=== PATIENT | male | born 1985 | race Caucasian/White ===

== ENCOUNTER 2023-01-15 16:31 | Emergency (ER) | payer MEDICAID ==
[~2023-01-15] VITALS: Ht 190.5 cm; Wt 100.0 kg
[2023-01-15] MEDS ORDERED: IBUPROFEN 600 MG TABLET PO ONE (17:00)
[2023-01-15] MEDS ORDERED: IBUP-1492 PO (18:09)
[2023-01-15 18:45] VITALS: BP 122/77
== END 2023-01-15 18:45 | disposition home or self-care (01) ==
LOC: EMS 16:32
DX: S52.501A Unspecified fracture of the lower end of right radius, initial encounter for closed fracture (principal); S52.502A Unspecified fracture of the lower end of left radius, initial encounter for closed fracture; W51.XXXA Accidental striking against or bumped into by another person, initial encounter; Y93.89 Activity, other specified; Y92.89 Other specified places as the place of occurrence of the external cause; Y99.8 Other external cause status
CPT/HCPCS: 99283

== ENCOUNTER 2023-01-25 15:11 | Emergency (ER) | payer MEDICAID ==
[~2023-01-25] VITALS: Ht 188 cm; Wt 81.8 kg
[~2023-01-25 15:11] MED LIST: IBUP-1492 PO
[2023-01-25 15:19] VITALS: BP 134/87
[2023-01-25] MEDS ORDERED: LORazepam 1 MG TABLET PO ONE (17:45)
[2023-01-25 18:22] LABS: BASOPHILS % (AUTO) 0.4 % (0.0-2.0); EOSINOPHILS % (AUTO) 0.6 % (1.0-6.0); HEMATOCRIT 40.9 % (41-53); HEMOGLOBIN 13.9 g/dL (13.5-17.5); LYMPHOCYTES # (AUTO) 1.9 K/uL (1.0-4.8); LYMPHOCYTES % (AUTO) 27.1 % (22.0-44.0); MEAN CORPUSCULAR HEMOGLOBIN 30.7 pg (26.0-34.0); MEAN CORPUSCULAR HGB CONC 34.1 G/dL (31.0-37.0); MEAN CORPUSCULAR VOLUME 90 fL (80-100); MONOCYTES # (AUTO) 0.8 K/uL (0.1-1.0); MONOCYTES % (AUTO) 11.1 % (2.0-9.0); NEUTROPHILS # (AUTO) 4.3 K/uL (1.8-7.7); NEUTROPHILS % (AUTO) 60.8 % (40.0-70.0); PLATELET COUNT (AUTO) 287 K/uL (150-450); RED BLOOD CELL COUNT(AUTO) 4.54 MIL/uL (4.50-5.90); RED CELL DISTRIBUTION WIDTH 13.7 % (11.5-14.5)
[2023-01-25 18:33] LABS: ANION GAP 10 mmol/L (8-16); CALCIUM, TOTAL 9.2 mg/dL (8.8-10.5); CARBON DIOXIDE 25 mmol/L (22-29); CHLORIDE 101 mmol/L (98-107); CREATININE 0.97 mg/dL (0.60-1.30); GLOMERULAR FILTR. RATE CALC > 60 mL/min (>60); GLUCOSE,RANDOM 129 mg/dL (70-110); POTASSIUM 3.6 mmol/L (3.5-5.1); SODIUM SERUM 136 mmol/L (136-145)
[2023-01-25 18:40] LABS: ALANINE AMINOTRANSFERASE 15 U/L (12-78); ALBUMIN 3.9 g/dL (3.4-5.0); ALKALINE PHOSPHATASE 86 U/L (46-116); ASPARTATE AMINOTRANSFERASE 21 U/L (15-37); TOTAL PROTEIN, SERUM 7.9 g/dL (6.4-8.2)
[2023-01-25 18:41] LABS: COVID AG,FIA SOURCE NASAL SWAB
== END 2023-01-25 19:19 | disposition home or self-care (01) ==
LOC: EMS 15:19
DX: F32.A Depression, unspecified (principal); F17.210 Nicotine dependence, cigarettes, uncomplicated; F12.90 Cannabis use, unspecified, uncomplicated; F15.90 Other stimulant use, unspecified, uncomplicated; Z20.822 Contact with and (suspected) exposure to COVID-19
CPT/HCPCS: 99284; 87426; 80053; 85025; 36415; G0480

== ENCOUNTER 2024-07-04 00:17 | Emergency (ER) | payer MEDICAID, OTHER ==
[~2024-07-04] VITALS: Ht 182.9 cm; Wt 102.3 kg
[2024-07-04 00:20] VITALS: TEMP 98.6
[2024-07-04] MEDS ORDERED: ACET-3385 PO (00:26)
[2024-07-04] MEDS ORDERED: IBUP-45 PO (00:26)
[2024-07-04 01:38] VITALS: BP 149/73; PULSE 79; RESP 19; O2SAT 100
[2024-07-04] MEDS: HYDROGEN PEROXIDE 118 ML SOLUTION TP ONE (02:43)
[2024-07-04] MEDS ORDERED: CORTSUSP AD (03:05)
[2024-07-04] MEDS ORDERED: [UNRECOGNIZED DRUG - CODE] TP (03:14)
== END 2024-07-04 03:20 | disposition home or self-care (01) ==
LOC: EMS 00:17
DX: H61.21 Impacted cerumen, right ear (principal); F12.90 Cannabis use, unspecified, uncomplicated; F17.210 Nicotine dependence, cigarettes, uncomplicated; G47.33 Obstructive sleep apnea (adult) (pediatric)
CPT/HCPCS: 69209; 99283